=== PATIENT | male | born 1975 | race Hispanic/Latino ===

== ENCOUNTER 2017-06-19 15:51 | Emergency (ER) | payer OTHER ==
[2017-06-19 16:27] LABS: Basophils % (Auto) 0.9 % (0.0-1.8); Eosinophils % (Auto) 2.6 % (0.0-4.3); Hematocrit 48.2 % (35.5-45.6); Hemoglobin 16.2 gm/dl (11.8-15.2); Mean Corpuscular HGB Conc 34 % (32-34); Mean Corpuscular Hemoglobin 30 pg (28-32); Mean Corpuscular Volume 90 fl (84-94); Platelet Count 305 K/mm3 (140-440); Red Blood Count 5.36 M/mm3 (3.65-5.03); Red Cell Distribution Width 13.9 % (13.2-15.2); White Blood Count 13.6 K/mm3 (4.5-11.0)
[2017-06-19 16:46] LABS: Alanine Aminotransferase 18 units/L (7-56); Albumin 4.3 g/dL (3.9-5); Albumin/Globulin Ratio 1.4 %; Alkaline Phosphatase 70 units/L (35-129); Anion Gap 21 mmol/L; BUN/Creatinine Ratio 18; Blood Urea Nitrogen 14 mg/dL (9-20); Carbon Dioxide 24 mmol/L (22-30); Chloride 100.1 mmol/L (98-107); Glucose 120 mg/dL (75-100); Lipase 32 units/L (13-60); Potassium 3.9 mmol/L (3.6-5.0); Sodium 141 mmol/L (137-145); Total Protein 7.3 g/dL (6.3-8.2)
[2017-06-19] MEDS ORDERED: ZOFRAN ODT PO ONE ×2 (17:03→18:33)
[2017-06-19] MEDS ORDERED: TORADOL IM ONE (17:03)
--- NOTE | 2017-06-19 17:03 | Emergency Department Report ---
Chief Complaint: Abdominal Pain Stated Complaint: BILATERAL FLANK PAIN Time Seen by Provider: 06/19/17 17:02 - HPI History of Present Illness: Patient here reports her current multiple kidney stones. He is accompanied in the bilateral back and flank pain. He reports severe nausea and vomiting. He said he has been vomiting all day today. Denies any diarrhea. Denies any abdominal pain. Pain is 10 out of 10, cramping, colicky. He reports that he had fever and chills. Patient urologist is Dr. Smith and he said that it was planned that he was supposed to have procedure to break up kidney stones in July 2017 but now his insurance does not cover that urologist. He is also complaining of blood in his urine and minimal dysuria and this has been going on over the past 3-4 days. Patient reports that his primary care is [facility] in family practice. He denies any trauma to the back. Denies any radiation of pain to lower extremities. She denies any chest pain, shortness of breath, dizziness, headache or blurred vision with elevated blood pressure of 178/108 and heart rate at 116. - ROS Review of Systems: All systems are negative unless stated in HPI above - Exam Vital Signs: Vital Signs 06/19/17 16:02 Temperature 98.2 F Pulse Rate 116 H Respiratory 18 Rate Blood Pressure 178/108 O2 Sat by Pulse 100 Oximetry Patient blood pressure heart rate is elevated suspect from pain because he said he has no history of high blood pressure and he said his blood pressure and heart rate is always elevated when he has pain. Patient to receive Toradol 30 mg IM and Zofran 4 mg ODT and nurse instructed to recheck vital signs in 30-45 minutes of patient is still in the main waiting room. Physical Exam: Gen.: This is a 41-year-old male well-nourished well-developed but he is moaning and groaning because he said he is in a lot of pain and he feels very nauseated Abdomen: Nontender to palpate in all quadrants, normal bowel sounds. No rigidity. Positive CVA tenderness. Cardiovascular: S1, S2, patient is tachycardic at 116. Blood pressure is 178/ 108. MSE screening note: Focused history and physical exam performed. Due to findings the following was ordered: ED Medical Decision Making - Lab Data Result diagrams: 06/19/17 16:14 06/19/17 16:14 - Medical Decision Making MDM: Patient screened by provider in triage area. Appropriate protocol initiated and patient to be seen in main ED by Dr. HATFIELD Disposition for MSE Condition: Stable
[2017-06-19] MEDS ORDERED: ZOFRAN ODT ONE (17:04)
--- NOTE | 2017-06-19 17:54 | Cat Scan Report ---
FINAL REPORT EXAM: CT ABDOMEN PELVIS WO CON HISTORY: urinary burning, hematuria tanesha flank pain TECHNIQUE: Unenhanced stone protocol CT of the abdomen and pelvis at 2.5 millimeter axial increments. Coronal and sagittal reconstruction was also performed. PRIORS: None. FINDINGS: There are multiple nonobstructing calculi present in the left kidney. These measure up to 6 mm in the mid and lower poles of the left kidney. No evidence for ureteral or bladder calculus is seen. No evidence for hydronephrosis is noted. No evidence for bladder mass or bladder wall thickening is seen. In the upper pole medially of the left kidney, there is a 4.8 x 4.8 cm low-density cyst. Otherwise, within the limits of a noncontrast exam, the liver, spleen, pancreas, gallbladder, and adrenal glands are unremarkable. No evidence for retroperitoneal or pelvic lymphadenopathy is seen. The bowel loops have normal caliber. No fluid collection, inflammatory change, or free air is seen within the abdomen or pelvis. The appendix is normal. Within the pelvis, the prostate is normal. There is a left inguinal hernia containing only fat. Images through the upper abdomen include the lung bases which are expanded and clear. Bony structures show no focal abnormalities. IMPRESSION: 1. No evidence for renal obstruction. 2. Multiple nonobstructing calculi present in the left kidney 3. Large cyst present in the upper pole of the left kidney 4. Small left inguinal hernia containing only fat.
[2017-06-19 18:07] LABS: Bilirubin,Urine NEG (Negative); Blood,Urine NEG (Negative); Ketones,Urine NEG (Negative); Leukocyte Esterase,Urine NEG (Negative); Mucus,Urine FEW /HPF; Nitrite,Urine NEG (Negative); Protein,Urine <15 mg/dL mg/dL (Negative); Urobilinogen,Urine < 2.0 mg/dL (<2.0)
[2017-06-19] MEDS ORDERED: NORCO 7.5/325 PO ONE (18:33)
[2017-06-19] MEDS ORDERED: NACL 0.9% 1000 ML 1,000 ML IV ONE (18:36)
[2017-06-19] MEDS ORDERED: MOTRIN PO ONE ×2 (18:40→18:48)
[2017-06-19] MEDS ORDERED: MORPHINE IV ONE (19:56)
[2017-06-19] MEDS ORDERED: REGLAN IV ONE (19:56)
[2017-06-19] MEDS ORDERED: REGLAN ONE (20:00)
[2017-06-19] MEDS ORDERED: DILAUDID IV ONE (20:03)
[2017-06-19 20:51] VITALS: BP 145/107
--- NOTE | 2017-06-19 21:04 | Emergency Department Report ---
ED Abdominal Pain HPI - General Chief Complaint: Abdominal Pain Stated Complaint: BILATERAL FLANK PAIN Time Seen by Provider: 06/19/17 17:02 Source: patient Mode of arrival: Ambulatory Limitations: No Limitations - History of Present Illness Initial Comments: 41-year-old male past medical history smoker, left renal cyst, kidney stones, multiple lithotripsies approximately 7 times as per patient last in 2012 presents with complaint of 2-3 days of acute left-sided flank pain. Over the last few days pain has been intermittent sharp left sided and colicky. Patient states that this pain is consistent with his previous episodes of kidney stone/ renal colic. Patient states he went to primary care provider this morning who deferred him to the ED. On it on exam patient is awake alert and oriented 3 not in acute distress states his pain is currently 0 out of 10 as he has received pain medicine before I evaluated him. Denies fevers chills nausea vomiting dysuria or hematuria. Primarily stated that he felt left-sided flank pain radiating down his left flank some right-sided flank pain but definitely worse on the left than the right as per patient. Patient states that he has follow-up with his urologist of [facility] on 07/17/17. Patient is currently tolerating by mouth fluid and food without difficulty. MD Complaint: abdominal pain, flank pain Onset/Timin -: days(s) Location: L flank Radiation: L flank Migration to: no migration Severity: moderate Severity scale (0 -10): 0 Quality: sharp Improves With: nothing Worsens With: nothing - Related Data Previous Rx's Medication Instructions Recorded Last Taken Type HYDROcodone/APAP 5-325 [Bentley 1 each PO Q6HR PRN #15 tablet 06/19/17 Unknown Rx 5/325] Ketorolac [Toradol] 10 mg PO Q6H PRN #12 tablet 06/19/17 Unknown Rx Promethazine [Phenergan TAB] 25 mg PO Q8HR PRN #20 tab 06/19/17 Unknown Rx Allergies Allergy/AdvReac Type Severity Reaction Status Date / Time morphine Allergy Unknown Verified 06/19/17 18:17 Penicillins Allergy Rash Verified 06/19/17 16:05 ED Review of Systems ROS: Stated complaint: BILATERAL FLANK PAIN Other details as noted in HPI Constitutional: denies: chills, fever Eyes: denies: eye pain, eye discharge, vision change ENT: denies: ear pain, throat pain Respiratory: denies: cough, shortness of breath, wheezing Cardiovascular: denies: chest pain, palpitations Endocrine: no symptoms reported Gastrointestinal: denies: abdominal pain, nausea, diarrhea Genitourinary: denies: urgency, dysuria Musculoskeletal: denies: back pain, joint swelling, arthralgia Skin: denies: rash, lesions Neurological: denies: headache, weakness, paresthesias Psychiatric: denies: anxiety, depression Hematological/Lymphatic: denies: easy bleeding, easy bruising ED Past Medical Hx - Past Medical History Additional medical history: kidney stones - Surgical History Additional Surgical History: stones blasted - Social History Smoking Status: Current Every Day Smoker Substance Use Type: Alcohol - Medications Home Medications: Home Medications Medication Instructions Recorded Confirmed Last Taken Type HYDROcodone/APAP 5-325 [Bentley 1 each PO Q6HR PRN #15 tablet 06/19/17 Unknown Rx 5/325] Ketorolac [Toradol] 10 mg PO Q6H PRN #12 tablet 06/19/17 Unknown Rx Promethazine [Phenergan TAB] 25 mg PO Q8HR PRN #20 tab 06/19/17 Unknown Rx ED Physical Exam - General Limitations: No Limitations General appearance: alert, in no apparent distress - Head Head exam: Present: atraumatic, normocephalic - Eye Eye exam: Present: normal appearance, PERRL, EOMI - ENT ENT exam: Present: mucous membranes moist - Neck Neck exam: Present: normal inspection, full ROM - Respiratory Respiratory exam: Present: normal lung sounds bilaterally. Absent: respiratory distress - Cardiovascular Cardiovascular Exam: Present: regular rate, normal rhythm. Absent: systolic murmur, diastolic murmur, rubs, gallop - GI/Abdominal GI/Abdominal exam: Present: soft, normal bowel sounds - Rectal Rectal exam: Present: deferred - Extremities Exam Extremities exam: Present: normal inspection - Back Exam Back exam: Present: normal inspection, CVA tenderness (R) (minimal to no right sided CVA tenderness.), CVA tenderness (L) (mild left-sided CVA tenderness.) - Neurological Exam Neurological exam: Present: alert, oriented X3, CN II-XII intact, normal gait - Psychiatric Psychiatric exam: Present: normal affect, normal mood - Skin Skin exam: Present: warm, dry, intact, normal color. Absent: rash ED Course Vital Signs 06/19/17 06/19/17 06/19/17 16:02 18:19 20:50 Temperature 98.2 F 98.3 F Pulse Rate 116 H 99 H Respiratory 18 18 18 Rate Blood Pressure 178/108 Blood Pressure 145/107 [Right] O2 Sat by Pulse 100 99 Oximetry ED Medical Decision Making - Lab Data Result diagrams: 06/19/17 16:14 06/19/17 16:14 - Medical Decision Making A/P: Left-sided renal colic, asymptomatic hypertension 1-upon the time of my examination and interview of the patient he is completely asymptomatic. States his pain is 0 out of 10 and has no nausea and is visibly eating and drinking in examination room. Patient accompanied by at bedside. I informed the patient of his lab results and that the noncontrast CT shows nonobstructing left-sided renal calculi and no hydronephrosis. Patient is aware he has a left-sided renal cyst 2-CBC shows mild leukocytosis, BUN/creatinine within normal limits. Urinalysis unremarkable no signs of UTI 3-Bentley when necessary, antiemetics when necessary, Toradol when necessary patient states that he has had Bentley in the past without allergies. States that morphine and Percocet make him feel extremely nauseous and have resulted in altered mental status form in the past. 4-patient states that he has follow-up with his urologist Dr. Smith on 07/17/2017 states he will follow-up promptly. Patient states that his blood pressure typically elevates when he is in severe pain. Patient currently has no chest pain shortness of breath palpitations headache or dyspnea. I advised him to follow up with his primary care doctor for reevaluation of his blood pressure. Critical care attestation.: If time is entered above; I have spent that time in minutes in the direct care of this critically ill patient, excluding procedure time. ED Disposition Clinical Impression: Renal colic on left side Disposition: DC-01 TO HOME OR SELFCARE Is pt being admited?: No Does the pt Need Aspirin: No Condition: Stable Instructions: Kidney Stones (ED), Renal Colic (ED), Flank Pain (ED) Prescriptions: HYDROcodone/APAP 5-325 [Bentley 5/325] 1 each PO Q6HR PRN #15 tablet PRN Reason: Pain Ketorolac [Toradol] 10 mg PO Q6H PRN #12 tablet PRN Reason: Pain Promethazine [Phenergan TAB] 25 mg PO Q8HR PRN #20 tab PRN Reason: Nausea Referrals: SATHYA SMITH MD [Referring] - 3-5 Days Forms: Accompanied Note, Work/School Release Form(ED) Time of Disposition: 21:16
== END 2017-06-19 21:34 | disposition home or self-care (01) ==
LOC: ED 15:51
DX: N23 Unspecified renal colic (principal); F17.200 Nicotine dependence, unspecified, uncomplicated; Z88.0 Allergy status to penicillin; Z88.5 Allergy status to narcotic agent
CPT/HCPCS: 36415; 74176; 80053; 81001; 83690; 85025; 96361; 96372; 96374; 96375; 99284; J1170; J1885; J2765; J7030; Q0162

== ENCOUNTER 2017-06-27 17:17 | Emergency (ER) | payer OTHER ==
[2017-06-27 18:59] VITALS: BP 148/110
[2017-06-27 19:02] LABS: Basophils % (Auto) 1.2 % (0.0-1.8); Eosinophils % (Auto) 3.8 % (0.0-4.3); Hematocrit 46.6 % (35.5-45.6); Hemoglobin 15.6 gm/dl (11.8-15.2); Mean Corpuscular HGB Conc 33 % (32-34); Mean Corpuscular Hemoglobin 30 pg (28-32); Mean Corpuscular Volume 89 fl (84-94); Platelet Count 325 K/mm3 (140-440); Red Blood Count 5.25 M/mm3 (3.65-5.03); Red Cell Distribution Width 13.8 % (13.2-15.2); White Blood Count 9.8 K/mm3 (4.5-11.0)
[2017-06-27 19:10] LABS: Anion Gap 20 mmol/L; BUN/Creatinine Ratio 10; Blood Urea Nitrogen 8 mg/dL (9-20); Calcium 9.4 mg/dL (8.4-10.2); Carbon Dioxide 27 mmol/L (22-30); Chloride 101.5 mmol/L (98-107); Glucose 96 mg/dL (75-100); Potassium 4.2 mmol/L (3.6-5.0); Sodium 144 mmol/L (137-145)
[2017-06-27 19:34] LABS: Bilirubin,Urine NEG (Negative); Blood,Urine MOD (Negative); Ketones,Urine NEG (Negative); Leukocyte Esterase,Urine NEG (Negative); Nitrite,Urine NEG (Negative); Protein,Urine <15 mg/dL mg/dL (Negative); Urobilinogen,Urine < 2.0 mg/dL (<2.0)
[2017-06-27] MEDS ORDERED: DILAUDID IM ONE (20:01)
[2017-06-27] MEDS ORDERED: DILAUDID ONE (20:06)
--- NOTE | 2017-06-27 20:24 | Emergency Department Report ---
ED Abdominal Pain HPI - General Chief Complaint: Abdominal Pain Stated Complaint: KIDNEY STONES Time Seen by Provider: 06/27/17 19:08 Source: patient Mode of arrival: Ambulatory Limitations: No Limitations - History of Present Illness Initial Comments: Patient with non-obstructing renal stones via CT scan last week. Now with recurrent left flank pain and out of pain meds. Was waiting until July to go to Urology. No F/C. MD Complaint: flank pain (Left) -: Sudden, days(s) (10) Location: L flank Radiation: none Migration to: no migration Severity: severe Severity scale (0 -10): 10 Quality: sharp Consistency: intermittent Improves With: nothing Worsens With: movement, other (urination) Associated Symptoms: nausea, vomiting, dysuria - Related Data Previous Rx's Medication Instructions Recorded Last Taken Type Ketorolac [Toradol] 10 mg PO Q6H PRN #12 tablet 06/19/17 Unknown Rx Promethazine [Phenergan TAB] 25 mg PO Q8HR PRN #20 tab 06/19/17 Unknown Rx HYDROcodone/APAP 5-325 [Bosler 1 each PO Q6HR PRN #15 tablet 06/27/17 Unknown Rx 5-325 mg TAB] Allergies Allergy/AdvReac Type Severity Reaction Status Date / Time morphine Allergy Unknown Verified 06/19/17 18:17 Penicillins Allergy Rash Verified 06/19/17 16:05 ED Review of Systems ROS: Stated complaint: KIDNEY STONES Other details as noted in HPI Constitutional: denies: chills, fever Eyes: denies: eye pain, eye discharge, vision change ENT: denies: ear pain, throat pain Respiratory: denies: cough, shortness of breath, wheezing Cardiovascular: denies: chest pain, palpitations Endocrine: no symptoms reported Gastrointestinal: nausea. denies: abdominal pain, diarrhea Genitourinary: as per HPI. denies: urgency, dysuria Musculoskeletal: denies: back pain, joint swelling, arthralgia Skin: denies: rash, lesions Neurological: denies: headache, weakness, paresthesias Psychiatric: denies: anxiety, depression Hematological/Lymphatic: denies: easy bleeding, easy bruising ED Past Medical Hx - Past Medical History Previous Medical History?: Yes Additional medical history: kidney stones - Surgical History Additional Surgical History: stones blasted - Social History Smoking Status: Current Every Day Smoker Substance Use Type: Alcohol - Medications Home Medications: Home Medications Medication Instructions Recorded Confirmed Last Taken Type Ketorolac [Toradol] 10 mg PO Q6H PRN #12 tablet 06/19/17 Unknown Rx Promethazine [Phenergan TAB] 25 mg PO Q8HR PRN #20 tab 06/19/17 Unknown Rx HYDROcodone/APAP 5-325 [Bosler 1 each PO Q6HR PRN #15 tablet 06/27/17 Unknown Rx 5-325 mg TAB] ED Physical Exam - General Limitations: No Limitations General appearance: alert, in no apparent distress - Head Head exam: Present: atraumatic, normocephalic - Eye Eye exam: Present: normal appearance - ENT ENT exam: Present: mucous membranes moist - Neck Neck exam: Present: normal inspection - Respiratory Respiratory exam: Present: normal lung sounds bilaterally. Absent: respiratory distress - Cardiovascular Cardiovascular Exam: Present: regular rate, normal rhythm. Absent: systolic murmur, diastolic murmur, rubs, gallop - GI/Abdominal GI/Abdominal exam: Present: soft, tenderness (Left CVA), normal bowel sounds, hernia (No protruding bulging hernia noted.) - Rectal Rectal exam: Present: deferred - Extremities Exam Extremities exam: Present: normal inspection - Back Exam Back exam: Present: normal inspection - Neurological Exam Neurological exam: Present: alert, oriented X3 - Psychiatric Psychiatric exam: Present: normal affect, normal mood - Skin Skin exam: Present: warm, dry, intact, normal color. Absent: rash ED Course Vital Signs 06/27/17 06/27/17 17:20 18:58 Temperature 98.1 F 98.2 F Pulse Rate 107 H 102 H Respiratory 20 16 Rate Blood Pressure 139/105 Blood Pressure 148/110 [Right] O2 Sat by Pulse 98 100 Oximetry ED Medical Decision Making - Lab Data Result diagrams: 06/27/17 18:32 06/27/17 18:32 urine has blood but otherwise labs are unremarkable. - Medical Decision Making Patient had non-obstructing renal stones and now with pain. Will refill meds and give shot of dilaudid. Will send home. needs Follow up with urologist. Critical care attestation.: If time is entered above; I have spent that time in minutes in the direct care of this critically ill patient, excluding procedure time. ED Disposition Clinical Impression: Renal colic on left side Disposition: DC-01 TO HOME OR SELFCARE Is pt being admited?: No Does the pt Need Aspirin: No Condition: Stable Instructions: Renal Colic (ED) Prescriptions: HYDROcodone/APAP 5-325 [Bosler 5-325 mg TAB] 1 each PO Q6HR PRN #15 tablet PRN Reason: Pain Referrals: SATHYA GONZALEZ MD [Referring] - 3-5 Days Time of Disposition: 20:29
== END 2017-06-27 21:01 | disposition home or self-care (01) ==
LOC: ED 17:17
DX: N23 Unspecified renal colic (principal); F17.200 Nicotine dependence, unspecified, uncomplicated; Z88.6 Allergy status to analgesic agent; Z88.0 Allergy status to penicillin
CPT/HCPCS: 36415; 80048; 81001; 85025; 96372; 99283; J1170

== ENCOUNTER 2017-12-03 15:15 | Emergency (ER) | payer OTHER ==
[2017-12-03 15:40] VITALS: BP 121/90
[2017-12-03 15:56] LABS: Basophils # (Auto) 0.1 K/mm3 (0.0-0.1); Eosinophils # (Auto) 0.4 K/mm3 (0.0-0.4); Eosinophils % (Auto) 3.6 % (0.0-4.3); Hematocrit 41.4 % (35.5-45.6); Hemoglobin 14.4 gm/dl (11.8-15.2); Lymphocytes # (Auto) 2.5 K/mm3 (1.2-5.4); Lymphocytes % (Auto) 21.4 % (13.4-35.0); Mean Corpuscular HGB Conc 35 % (32-34); Mean Corpuscular Hemoglobin 31 pg (28-32); Mean Corpuscular Volume 89 fl (84-94); Monocytes # (Auto) 0.8 K/mm3 (0.0-0.8); Platelet Count 297 K/mm3 (140-440); Red Blood Count 4.65 M/mm3 (3.65-5.03); Red Cell Distribution Width 13.2 % (13.2-15.2)
[2017-12-03 16:31] LABS: Alanine Aminotransferase 20 units/L (7-56); Albumin 4.3 g/dL (3.9-5); BUN/Creatinine Ratio 20; Blood Urea Nitrogen 14 mg/dL (9-20); Calcium 9.3 mg/dL (8.4-10.2); Hemolysis Index 24; Lipase 41 units/L (13-60)
[2017-12-03 16:57] LABS: Bilirubin,Urine NEG (Negative); Blood,Urine NEG (Negative); Color,Urine Yellow (Yellow); Mucus,Urine FEW /HPF; Protein,Urine <15 mg/dL mg/dL (Negative); Urobilinogen,Urine < 2.0 mg/dL (<2.0); WBC,Urine < 1.0 /HPF (0.0-6.0)
== END 2017-12-03 21:52 | disposition left against medical advice (07) ==
LOC: ED 15:15
DX: N20.0 Calculus of kidney (principal); Z53.21 Procedure and treatment not carried out due to patient leaving prior to being seen by health care provider
CPT/HCPCS: 36415; 80053; 81001; 83690; 85025